=== PATIENT | female | born 1950 | race Caucasian/White ===

== ENCOUNTER 2017-04-17 | Inpatient (IN) | payer MEDICARE ==
[~2017-04-17] VITALS: Ht 160 cm; Wt 51.5 kg
[~2017-04-17] MED LIST: ALEN70TA47 PO; AMLO10TA2 PO; ASPI-1197 PO; ATOR10 PO; CALC-724 PO; CYAN100022 SL; ENAL10TA PO; FERR15DR21 PO; FOLI1TAB15 PO; LEVO88TA7 PO; MELO-108 PO; SENN-178 PO
[2017-04-17 00:41] LABS: BASOPHILS % (AUTO) 0.7 % (0.0-5.0); EOSINOPHILS % (AUTO) 0.5 % (0.0-8.0); HEMATOCRIT 24.3 % (36-48); LYMPHOCYTES % (AUTO) 11.3 % (21.0-51.0); MEAN CORPUSCULAR HEMOGLOBIN 33.4 pg (27.0-33.0); MEAN CORPUSCULAR HGB CONC 33.9 g/dL (32.0-36.0); MEAN CORPUSCULAR VOLUME 98.3 fL (79-99); MONOCYTES % (AUTO) 7.3 % (3.0-13.0); NEUTROPHILS % (AUTO) 80.2 % (40.0-77.0); NUCLEATED RED BLOOD CELLS 0.1 % (0.0-0.19); RED BLOOD CELL COUNT(AUTO) 2.47 MIL/uL (4.00-5.50); RED CELL DISTRIBUTION WIDTH 14.7 % (11.0-15.5); WHITE BLOOD COUNT (AUTO) 17.7 K/uL (4.8-10.8)
[2017-04-17 00:50] LABS: ALBUMIN 3.6 g/dL (3.5-5.0); BILIRUBIN,TOTAL 0.2 mg/dL (0.2-1.0); CREATININE 0.7 mg/dL (0.5-1.5); POTASSIUM 3.4 mmol/L (3.5-5.1); TOTAL PROTEIN, SERUM 7.8 g/dL (6.0-8.3)
[2017-04-17] MEDS ORDERED: SODIUM CHLORIDE 0.9% 1000ML 1,000 ML IV ONE (00:52)
[2017-04-17] MEDS ORDERED: ONDANSETRON HCL 4 MG/2 ML VIAL ONE ×2 (00:52→16:48)
[2017-04-17 01:03] LABS: PLATELET COUNT (AUTO) 793 K/uL (130-400)
[2017-04-17] MEDS ORDERED: MORPHINE SULFATE 2 MG/ML 1ML SYG ONE (01:05)
[2017-04-17 01:26] LABS: APPEARANCE,URINE Clear (CLEAR); BILIRUBIN,URINE Negative (NEGATIVE); COLOR,URINE Yellow (YELLOW); GLUCOSE, URINE (UA) Negative (NEGATIVE); KETONES,URINE Negative (NEGATIVE); LEUKOCYTE ESTERASE ,URINE Small (NEGATIVE); NITRATE,URINE Negative (NEGATIVE); OCCULT BLOOD,URINE Negative (NEGATIVE); PROTEIN,URINE Negative (NEGATIVE); UROBILINOGEN,URINE 0.2 mg/dL (0.2-1.0)
[2017-04-17 01:37] LABS: BACTERIA,URINE None Seen /HPF (None Seen); RBC,URINE 0-1 /HPF (0-1); SQUAMOUS EPITHELIAL CELL,UR Moderate /LPF (0-2); WBC,URINE 0-1 /HPF (0-1)
[2017-04-17] MEDS ORDERED: MAGNESIUM CITRATE 296 ML SOLUTION ONE (02:55)
[2017-04-17] MEDS ORDERED: HYOSCYAMINE SULFATE 0.125 MG TAB.SUBL SL ONE (03:17)
[2017-04-17] MEDS ORDERED: KETOROLAC TROMETHAMINE 30MG/ML ONE (03:17)
[2017-04-17] MEDS ORDERED: LACTULOSE 20 GM/30 ML UDCUP ONE (09:47)
[2017-04-17] MEDS ORDERED: ENOXAPARIN SODIUM 30 MG/0.3 ML SQ ONE (09:48)
[2017-04-17 13:16] VITALS: BP 119/66
[2017-04-17] MEDS ORDERED: CEFTRIAXONE 1GM/D5W 50ML 50 ML IV SCH (14:15)
[2017-04-17 16:46] VITALS: BP 110/61
[2017-04-17] MEDS: CEFTRIAXONE SODIUM 1 GM IVP SCH (16:50)
[2017-04-17] MEDS: SODIUM CHLORIDE 0.9% 1000ML 1,000 ML IV SCH (16:50)
[2017-04-17] MEDS ORDERED: ONDANSETRON HCL 4 MG/2 ML VIAL IVP PRN (17:00)
[2017-04-17 19:20] VITALS: BP 126/71
[2017-04-17] MEDS ORDERED: PHARMACY COMMUNICATION MISC SCH (20:30)
[2017-04-17] MEDS ORDERED: MORPHINE-NS 50 MG/50 ML 50 ML IV ONE (20:36)
[2017-04-17] MEDS: LACTULOSE 20 GM/30 ML UDCUP PO SCH (20:57)
[2017-04-17] MEDS ORDERED: MORPHINE-NS 50 MG/50 ML 50 ML IV PRN (21:00)
[2017-04-17] MEDS: METRONIDAZOLE 500MG/100ML BAG 100 ML IV SCH (22:28)
[2017-04-17 23:00] VITALS: BP 114/67
[2017-04-18] MEDS ORDERED: AMLO10TA2 PO (02:00)
[2017-04-18] MEDS ORDERED: LEVO88TA7 PO (02:00)
[2017-04-18] MEDS ORDERED: ALEN10TA PO (02:00)
[2017-04-18] MEDS ORDERED: MELO-108 PO (02:00)
[2017-04-18 03:15] VITALS: BP 116/66
[2017-04-18 04:43] LABS: BASOPHILS % (AUTO) 0.3 % (0.0-5.0); EOSINOPHILS % (AUTO) 0.5 % (0.0-8.0); LYMPHOCYTES % (AUTO) 9.8 % (21.0-51.0); MEAN CORPUSCULAR HEMOGLOBIN 34.5 pg (27.0-33.0); MEAN CORPUSCULAR HGB CONC 34.8 g/dL (32.0-36.0); MONOCYTES % (AUTO) 9.2 % (3.0-13.0); NEUTROPHILS % (AUTO) 80.2 % (40.0-77.0); PLATELET COUNT (AUTO) 659 K/uL (130-400); RED BLOOD CELL COUNT(AUTO) 2.07 MIL/uL (4.00-5.50); RED CELL DISTRIBUTION WIDTH 14.9 % (11.0-15.5)
[2017-04-18 04:51] LABS: BILIRUBIN,TOTAL 0.1 mg/dL (0.2-1.0); CREATININE 0.5 mg/dL (0.5-1.5); POTASSIUM 3.1 mmol/L (3.5-5.1); TOTAL PROTEIN, SERUM 6.4 g/dL (6.0-8.3)
[2017-04-18 05:05] LABS: HEMATOCRIT 20.5 % (36-48)
[2017-04-18] MEDS: METRONIDAZOLE 500MG/100ML BAG 100 ML IV SCH ×3 (05:41→20:59)
[2017-04-18] MEDS: ALENDRONATE SODIUM 10 MG PO SCH (07:30)
[2017-04-18 07:57] VITALS: BP 132/52
[2017-04-18] MEDS ORDERED: POTASSIUM CHLORIDE 20MEQ/100ML 100 ML IV PRN (08:00)
[2017-04-18] MEDS ORDERED: POTASSIUM CHLORIDE 10% ELIXIR 20 MEQ/15 ML UDCUP PO PRN (08:00)
[2017-04-18] MEDS ORDERED: LIDOCAINE HCL-MPF 1% 2ML VIAL IVP PRN (08:00)
[2017-04-18] MEDS: LEVOTHYROXINE 88 MCG TABLET PO SCH (08:07)
[2017-04-18] MEDS: SODIUM CHLORIDE 0.9% 1000ML 1,000 ML IV SCH ×2 (08:11→18:40)
[2017-04-18] MEDS: AMLODIPINE BESYLATE 5 MG TAB PO SCH (08:13)
[2017-04-18] MEDS: MELOXICAM 7.5 MG TABLET PO SCH (08:13)
[2017-04-18] MEDS: ENOXAPARIN SODIUM 30 MG/0.3 ML SQ SCH (08:13)
[2017-04-18] MEDS: LACTULOSE 20 GM/30 ML UDCUP PO SCH ×2 (08:14→20:58)
[2017-04-18 10:56] LABS: RETICULOCYTE % (AUTO) 6.77 % (0.42-2.23)
[2017-04-18 11:05] VITALS: BP 133/59
[2017-04-18 11:44] LABS: % IRON SATURATION 3.4 % (22-44); FERRITIN 39 ng/mL (15-150); IRON, SERUM 10 mcg/dL (50-170); TOTAL IRON BINDING CAPACITY 292 mcg/dL (250-450)
[2017-04-18] MEDS: CEFTRIAXONE SODIUM 1 GM IVP SCH (13:10)
[2017-04-18 15:58] VITALS: BP 126/61
[2017-04-18 19:15] VITALS: BP 106/56
[2017-04-18] MEDS: POTASSIUM CHLORIDE 20 MEQ ERTAB PO PRN (20:58)
[2017-04-18 23:15] VITALS: BP 94/56
[2017-04-18] MEDS ORDERED: ONDANSETRON HCL 4 MG/2 ML VIAL IVP PRN (23:15)
[2017-04-18] MEDS ORDERED: PANTOPRAZOLE SODIUM 80 MG in SODIUM CHLORIDE 0.9% 100 ML IV SCH (23:15)
[2017-04-18 23:32] LABS: HEMATOCRIT 22.3 % (36-48); MEAN CORPUSCULAR HEMOGLOBIN 31.7 pg (27.0-33.0); MEAN CORPUSCULAR HGB CONC 33.3 g/dL (32.0-36.0); MEAN CORPUSCULAR VOLUME 95.3 fL (79-99); NUCLEATED RED BLOOD CELLS 0.1 % (0.0-0.19); PLATELET COUNT (AUTO) 559 K/uL (130-400); RED BLOOD CELL COUNT(AUTO) 2.34 MIL/uL (4.00-5.50); RED CELL DISTRIBUTION WIDTH 15.7 % (11.0-15.5)
[2017-04-18] MEDS ORDERED: SODIUM CHLORIDE 0.9% 100 ML IV ONE (23:32)
[2017-04-18] MEDS: PANTOPRAZOLE SODIUM 80 MG in NS 100ML IVP SCH (23:37)
[2017-04-19] VITALS (18 sets, daily range): BP systolic 67–125; BP diastolic 42–80
[2017-04-19 05:21] LABS: BASOPHILS % (AUTO) 0.4 % (0.0-5.0); EOSINOPHILS % (AUTO) 0.2 % (0.0-8.0); MEAN CORPUSCULAR HEMOGLOBIN 31.8 pg (27.0-33.0); MEAN CORPUSCULAR HGB CONC 33.4 g/dL (32.0-36.0); MEAN CORPUSCULAR VOLUME 95.4 fL (79-99); MONOCYTES % (AUTO) 6.7 % (3.0-13.0); NEUTROPHILS % (AUTO) 84.2 % (40.0-77.0); PLATELET COUNT (AUTO) 490 K/uL (130-400); RED BLOOD CELL COUNT(AUTO) 1.98 MIL/uL (4.00-5.50); RED CELL DISTRIBUTION WIDTH 15.7 % (11.0-15.5); WHITE BLOOD COUNT (AUTO) 16.6 K/uL (4.8-10.8)
[2017-04-19 05:26] LABS: INR 1.07 (0.85-1.15); PARTIAL THROMBOPLASTIN TIME 27.6 SEC (26.3-35.5); PROTHROMBIN TIME 11.2 SEC (9.6-11.6)
[2017-04-19 05:31] LABS: HEMATOCRIT 18.9 % (36-48)
[2017-04-19 05:50] LABS: ALBUMIN 2.4 g/dL (3.5-5.0); BILIRUBIN,TOTAL 0.2 mg/dL (0.2-1.0); CREATININE 0.5 mg/dL (0.5-1.5); TOTAL PROTEIN, SERUM 5.3 g/dL (6.0-8.3)
[2017-04-19 05:51] LABS: LYMPHOCYTES % (AUTO) 8.5 % (21.0-51.0)
[2017-04-19] MEDS: METRONIDAZOLE 500MG/100ML BAG 100 ML IV SCH ×3 (06:00→22:27)
[2017-04-19] MEDS ORDERED: SODIUM CHLORIDE 0.9% 500ML 500 ML IV ONE (06:04)
[2017-04-19] MEDS: LEVOTHYROXINE 88 MCG TABLET PO SCH (06:30)
[2017-04-19] MEDS: ALENDRONATE SODIUM 10 MG PO SCH (07:30)
[2017-04-19] MEDS: LACTULOSE 20 GM/30 ML UDCUP PO SCH ×2 (07:59→21:00)
[2017-04-19] MEDS: MELOXICAM 7.5 MG TABLET PO SCH (07:59)
[2017-04-19] MEDS: ENOXAPARIN SODIUM 30 MG/0.3 ML SQ SCH (07:59)
[2017-04-19] MEDS: SODIUM CHLORIDE 0.9% 1000ML 1,000 ML IV SCH (08:00)
[2017-04-19] MEDS ORDERED: PROPOFOL 10 MG/ML 20ML VIAL IV ONE (08:38)
[2017-04-19] MEDS: PANTOPRAZOLE SODIUM 80 MG in NS 100ML IVP SCH (08:49)
[2017-04-19] MEDS: AMLODIPINE BESYLATE 5 MG TAB PO SCH (09:00)
[2017-04-19] MEDS ORDERED: MIDAZOLAM HCL 1 MG/ML 2ML VIAL ONE (09:02)
[2017-04-19] MEDS: CEFTRIAXONE SODIUM 1 GM IVP SCH (16:28)
[2017-04-20] MEDS ORDERED: SODIUM CHLORIDE 0.9% 100 ML IV ONE (00:02)
[2017-04-20] MEDS: PANTOPRAZOLE SODIUM 80 MG in NS 100ML IVP SCH ×2 (00:18→11:46)
[2017-04-20 00:31] VITALS: BP 95/47
[2017-04-20 04:47] VITALS: BP 126/69
[2017-04-20 04:55] LABS: HEMATOCRIT 25.1 % (36-48); MEAN CORPUSCULAR HGB CONC 34.7 g/dL (32.0-36.0); MEAN CORPUSCULAR VOLUME 89.4 fL (79-99); NUCLEATED RED BLOOD CELLS 0.1 % (0.0-0.19); PLATELET COUNT (AUTO) 453 K/uL (130-400); RED BLOOD CELL COUNT(AUTO) 2.81 MIL/uL (4.00-5.50); RED CELL DISTRIBUTION WIDTH 17.5 % (11.0-15.5); WHITE BLOOD COUNT (AUTO) 10.5 K/uL (4.8-10.8)
[2017-04-20 05:05] LABS: ALBUMIN 2.5 g/dL (3.5-5.0); BILIRUBIN,TOTAL 0.3 mg/dL (0.2-1.0); CREATININE 0.5 mg/dL (0.5-1.5); POTASSIUM 3.1 mmol/L (3.5-5.1); TOTAL PROTEIN, SERUM 5.4 g/dL (6.0-8.3)
[2017-04-20] MEDS: LEVOTHYROXINE 88 MCG TABLET PO SCH (06:39)
[2017-04-20] MEDS: ALENDRONATE SODIUM 10 MG PO SCH (06:39)
[2017-04-20] MEDS: METRONIDAZOLE 500MG/100ML BAG 100 ML IV SCH ×3 (06:39→20:52)
[2017-04-20 07:00] VITALS: BP 124/66
[2017-04-20] MEDS: ENOXAPARIN SODIUM 30 MG/0.3 ML SQ SCH (09:00)
[2017-04-20] MEDS: LACTULOSE 20 GM/30 ML UDCUP PO SCH ×2 (09:00→20:52)
[2017-04-20] MEDS: SUCRALFATE 1 GM/10 ML PO SCH ×3 (09:43→20:52)
[2017-04-20] MEDS: AMLODIPINE BESYLATE 5 MG TAB PO SCH (09:44)
[2017-04-20] MEDS: MELOXICAM 7.5 MG TABLET PO SCH (09:44)
[2017-04-20] MEDS: SODIUM CHLORIDE 0.9% 1000ML 1,000 ML IV SCH ×2 (10:40→15:41)
[2017-04-20 11:00] VITALS: BP 105/61
[2017-04-20] MEDS: POTASSIUM CHLORIDE 20 MEQ ERTAB PO PRN ×3 (11:12→17:08)
[2017-04-20] MEDS: CEFTRIAXONE SODIUM 1 GM IVP SCH (15:34)
[2017-04-20 16:00] VITALS: BP 133/72
[2017-04-20 20:06] VITALS: BP 122/67
[2017-04-21 00:10] VITALS: BP 113/55
[2017-04-21] MEDS: PANTOPRAZOLE SODIUM 80 MG in NS 100ML IVP SCH (01:15)
[2017-04-21 04:24] LABS: HEMATOCRIT 27.5 % (36-48); MEAN CORPUSCULAR HEMOGLOBIN 31.2 pg (27.0-33.0); MEAN CORPUSCULAR HGB CONC 34.6 g/dL (32.0-36.0); MEAN CORPUSCULAR VOLUME 90.3 fL (79-99); PLATELET COUNT (AUTO) 525 K/uL (130-400); RED BLOOD CELL COUNT(AUTO) 3.05 MIL/uL (4.00-5.50); RED CELL DISTRIBUTION WIDTH 17.3 % (11.0-15.5); WHITE BLOOD COUNT (AUTO) 14.8 K/uL (4.8-10.8)
[2017-04-21 04:37] VITALS: BP 119/64
[2017-04-21 04:40] LABS: CREATININE 0.5 mg/dL (0.5-1.5); POTASSIUM 3.3 mmol/L (3.5-5.1)
[2017-04-21] MEDS: SODIUM CHLORIDE 0.9% 1000ML 1,000 ML IV SCH (04:52)
[2017-04-21] MEDS: LEVOTHYROXINE 88 MCG TABLET PO SCH (06:48)
[2017-04-21] MEDS: POTASSIUM CHLORIDE 20 MEQ ERTAB PO PRN (06:48)
[2017-04-21] MEDS: METRONIDAZOLE 500MG/100ML BAG 100 ML IV SCH (06:48)
[2017-04-21] MEDS: ALENDRONATE SODIUM 10 MG PO SCH (06:49)
[2017-04-21 07:00] VITALS: BP_SYST 100; BP_SYST 148; BP_DIAS 69; BP_DIAS 81
[2017-04-21] MEDS: MELOXICAM 7.5 MG TABLET PO SCH (08:33)
[2017-04-21] MEDS: SUCRALFATE 1 GM/10 ML PO SCH (08:38)
[2017-06-01] MEDS ORDERED: FERR-82 PO (11:21)
[2017-06-01] MEDS ORDERED: LOSA1TAB42 PO (11:21)
[2017-06-01] MEDS ORDERED: MULT-1203 PO (11:21)
[2017-06-01] MEDS ORDERED: SENN-183 PO (11:21)
[2017-06-01] MEDS ORDERED: PANT40TA25 PO (11:21)
[2017-06-01] MEDS ORDERED: CALC600T12 PO (11:21)
[2017-07-18] MEDS ORDERED: AMLO5TAB2 PO (13:53)
[2017-07-18] MEDS ORDERED: VITAMIN B12 PO (13:53)
[2017-07-18] MEDS ORDERED: ATOR20TA65 PO (13:53)
[2017-07-18] MEDS ORDERED: ASPI-1197 PO (13:53)
[2017-07-18] MEDS ORDERED: IRON1CAP PO (13:53)
[2017-07-18] MEDS ORDERED: PANT40TA25 PO (13:53)
[2017-07-18] MEDS ORDERED: FOLI1TAB15 PO (13:53)
[2017-07-18] MEDS ORDERED: CITRACAL PO (13:53)
[2017-07-18] MEDS ORDERED: CARAFATE PO (13:53)
[2017-07-18] MEDS ORDERED: HYDROXYZINE PO (13:53)
[2017-07-18] MEDS ORDERED: LOSA1TAB42 PO (13:53)
[2017-07-18] MEDS ORDERED: SENNA PO (13:53)
== END 2017-04-21 08:50 | disposition home or self-care (01) | DRG 391 ==
LOC: EDH → EDHIP 03:14 → OBSVTOIN 03:14 → 3DH 13:01
PROVIDERS: ADMIT Internal Medicine; ATTEND Internal Medicine
PROC: 30233N1 Transfusion of Nonautologous Red Blood Cells into Peripheral Vein, Percutaneous Approach (ICD-10-PCS; 2017-04-18)
PROC: 0DB68ZX Excision of Stomach, Via Natural or Artificial Opening Endoscopic, Diagnostic (ICD-10-PCS; principal; 2017-04-19)
PROC: 3E0G8KZ Introduction of Other Diagnostic Substance into Upper GI, Via Natural or Artificial Opening Endoscopic (ICD-10-PCS; 2017-04-19)
PROC: 30233N1 Transfusion of Nonautologous Red Blood Cells into Peripheral Vein, Percutaneous Approach (ICD-10-PCS; 2017-04-19)
DX: K57.92 Diverticulitis of intestine, part unspecified, without perforation or abscess without bleeding (principal); K25.4 Chronic or unspecified gastric ulcer with hemorrhage; K92.0 Hematemesis; E87.1 Hypo-osmolality and hyponatremia; D50.9 Iron deficiency anemia, unspecified; Z79.899 Other long term (current) drug therapy; K57.90 Diverticulosis of intestine, part unspecified, without perforation or abscess without bleeding; K59.00 Constipation, unspecified; R33.9 Retention of urine, unspecified; E87.6 Hypokalemia; Z90.81 Acquired absence of spleen; K31.89 Other diseases of stomach and duodenum
CPT/HCPCS: 36415; 36430; 74176; 80048; 80053; 81001; 82150; 82607; 82728; 82746; 83690; 85025; 85027; 85610; 85730; 86850; 86900; 86901; 86922; 88342; 93005; A4218; C9113; J0696; J1650; J1885; J2250; J2270; J2405; J2704; J3490; J7030; J7040; P9016

== ENCOUNTER 2017-06-05 06:20 | Day surgery (SDC) | payer MEDICARE ==
[~2017-06-05] VITALS: Ht 162.6 cm; Wt 51.7 kg
[~2017-06-05 06:20] MED LIST changes: +ALEN10TA PO; -ALEN70TA47 PO; -ASPI-1197 PO; -ATOR10 PO; -CALC-724 PO; +CALC600T12 PO; -CYAN100022 SL; -ENAL10TA PO; +FERR-82 PO; -FERR15DR21 PO; -FOLI1TAB15 PO; +LOSA1TAB42 PO; -MELO-108 PO; +MULT-1203 PO; +PANT40TA25 PO; -SENN-178 PO; +SENN-183 PO
[2017-06-05] MEDS ORDERED: SODIUM CHLORIDE 0.9% 1000ML 1,000 ML IV ONE (06:53)
[2017-06-05 07:08] VITALS: BP 145/66
[2017-06-05] MEDS ORDERED: LIDOCAINE HCL 2% 20ML ONE (07:29)
[2017-06-05] MEDS ORDERED: FENTANYL CITRATE PF 50 MCG/1 ML 2ML VIAL ONE (07:29)
[2017-06-05] MEDS ORDERED: PROPOFOL 10 MG/ML 20ML VIAL IV ONE (07:29)
[2017-06-05] MEDS ORDERED: GLYCOPYRROLATE 0.2 MG/ML 5 ML VIAL ONE (07:29)
[2017-06-05 07:45] VITALS: BP 81/54
[2017-07-18] MEDS ORDERED: AMLO5TAB2 PO (13:53)
[2017-07-18] MEDS ORDERED: ASPI-1197 PO (13:53)
[2017-07-18] MEDS ORDERED: HYDROXYZINE PO (13:53)
[2017-07-18] MEDS ORDERED: SENNA PO (13:53)
[2017-07-18] MEDS ORDERED: VITAMIN B12 PO (13:53)
[2017-07-18] MEDS ORDERED: CITRACAL PO (13:53)
[2017-07-18] MEDS ORDERED: CARAFATE PO (13:53)
[2017-07-18] MEDS ORDERED: PANT40TA25 PO (13:53)
[2017-07-18] MEDS ORDERED: ATOR20TA65 PO (13:53)
[2017-07-18] MEDS ORDERED: LOSA1TAB42 PO (13:53)
[2017-07-18] MEDS ORDERED: FOLI1TAB15 PO (13:53)
[2017-07-18] MEDS ORDERED: IRON1CAP PO (13:53)
== END 2017-06-05 08:15 ==
LOC: DAH 06:20
PROVIDERS: ATTEND Internal Medicine Gastroenterology
DX: K25.3 Acute gastric ulcer without hemorrhage or perforation (principal); Z79.899 Other long term (current) drug therapy; I10 Essential (primary) hypertension; E78.5 Hyperlipidemia, unspecified; D64.9 Anemia, unspecified; E03.9 Hypothyroidism, unspecified; K44.9 Diaphragmatic hernia without obstruction or gangrene
CPT/HCPCS: 43239; 88305; 88342; 93005; A4606; J2704; J3010; J3490 ×2; J7030

== ENCOUNTER 2017-07-20 06:17 | Day surgery (SDC) | payer MEDICARE ==
[~2017-07-20] VITALS: Ht 162.6 cm; Wt 54.8 kg
[~2017-07-20 06:17] MED LIST changes: -ALEN10TA PO; -AMLO10TA2 PO; +AMLO5TAB2 PO; +ASPI-1197 PO; +ATOR20TA65 PO; -CALC600T12 PO; +CARAFATE PO; +CITRACAL PO; -FERR-82 PO; +FOLI1TAB15 PO; +HYDROXYZINE PO; +IRON1CAP PO; -LEVO88TA7 PO; -MULT-1203 PO; -SENN-183 PO; +SENNA PO; +VITAMIN B12 PO
[2017-07-20 06:24] VITALS: BP 135/60
[2017-07-20] MEDS ORDERED: SODIUM CHLORIDE 0.9% 1000ML 1,000 ML IV ONE (06:48)
[2017-07-20] MEDS ORDERED: FENTANYL CITRATE PF 50 MCG/1 ML 2ML VIAL ONE (07:35)
[2017-07-20] MEDS ORDERED: GLYCOPYRROLATE 0.2 MG/ML 5 ML VIAL ONE (07:35)
[2017-07-20] MEDS ORDERED: PROPOFOL 10 MG/ML 20ML VIAL IV ONE (07:35)
[2017-07-20 07:52] VITALS: BP 95/58
== END 2017-07-20 08:20 | disposition home or self-care (01) ==
LOC: DAH 06:17
PROVIDERS: ATTEND Internal Medicine Gastroenterology
DX: K31.89 Other diseases of stomach and duodenum (principal); K27.9 Peptic ulcer, site unspecified, unspecified as acute or chronic, without hemorrhage or perforation; K44.9 Diaphragmatic hernia without obstruction or gangrene; D64.89 Other specified anemias; E78.4 Other hyperlipidemia; I10 Essential (primary) hypertension; E78.5 Hyperlipidemia, unspecified; E03.8 Other specified hypothyroidism; Z79.899 Other long term (current) drug therapy; Z79.82 Long term (current) use of aspirin
CPT/HCPCS: 43235; 93005; A4606; J2704; J3010; J3490; J7030